=== PATIENT | male | born 1960 | race Caucasian/White ===

== ENCOUNTER 2021-02-23 09:42 | Emergency (ER) | payer MEDICAID, SELFPAY ==
--- NOTE | ~2021-02-23 | CT_ITS ---
EXAMINATION: CT ABDOMEN AND PELVIS WITHOUT CONTRAST CLINICAL INFORMATION: Right flank pain COMPARISON: 07/01/2016 TECHNIQUE: Multidetector volumetric imaging was performed from the superior aspect of the liver through the pubic symphysis. Sagittal and coronal reformatted images were obtained on the technologist's workstation. This CT examination was performed using dose optimization techniques as appropriate, variously including the following: *Automated exposure control *Adjustment of mA and/or kV according to patient size (this includes techniques or standardized protocols for targeted exams where dose is matched to indication/reason for exam; i.e. extremities or head) *Use of iterative reconstruction technique DLP: 674 mGy-cm FINDINGS: LUNG BASES: The visualized lung bases are unremarkable. LIVER, GALLBLADDER, AND BILIARY TREE: The liver is normal in size, shape, and attenuation. No focal hepatic lesion or biliary ductal dilatation is present. The gallbladder is unremarkable with no evidence of radiopaque gallstones, gallbladder wall thickening, or obvious pericholecystic inflammatory changes. PANCREAS: Unremarkable. SPLEEN: Unremarkable. ADRENAL GLANDS: Unremarkable. KIDNEYS AND URETERS: The kidneys are normal in size, shape, and attenuation. Mild right hydroureteronephrosis. There is a distal ureteral calculus measuring 0.3 cm. This is approximately 2 cm proximal to the ureterovesicular junction. There are multiple nonobstructing bilateral renal calculi. On the right there is a 0.2 cm lower pole calculus which is 14 cm from the posterior axillary line. On the left there are at least 3 calculi, with the largest at the lower pole measuring 0.4 cm, 11 cm from the posterior axillary line. BLADDER: Unremarkable. GASTROINTESTINAL TRACT: The stomach is unremarkable. Normal caliber small bowel. No obstruction. No colonic wall thickening or inflammatory change. Mild diverticulosis without diverticulitis. Normal appendix. No free air or free fluid. ABDOMINAL WALL: Possible prior ventral hernia repair. No abdominal wall hernia seen. LYMPH NODES: Normal. VASCULAR: Normal caliber aorta with mild atherosclerotic calcification. PELVIC VISCERA: The prostate and seminal vesicles are unremarkable. OSSEOUS STRUCTURES: No acute or suspicious osseous abnormality. Prominent endplate sclerosis at L5-S1. Bilateral L5 pars defects with grade 2 anterolisthesis of L5 on S1. CT/CT abdomen pelvis wo con IMPRESSION: Mild right hydroureteronephrosis with a 0.3 cm distal ureteral obstructing calculus. Multiple additional nonobstructing bilateral renal calculi.
[2021-02-23 09:55] VITALS: BP 132/96; PULSE 73; RESP 17; TEMP 36.9; O2SAT 99
[2021-02-23 09:59] VITALS: BP 176/86; PULSE 72; RESP 18; TEMP 36.8; O2SAT 99; BMI 31.7
--- NOTE | 2021-02-23 10:13 | ED.ABDPAIN ---
HPI - Abdominal Pain General Chief Complaint: Abdominal Pain Stated Complaint: rt side abd pain Time Seen by Provider: 02/23/21 10:00 Source: patient Mode of arrival: ambulatory Limitations: no limitations History of Present Illness MD elicited complaint: flank pain Pertinent past history: none Onset (ago): day(s) (yesterday but much worse the past 3 hours) Pain Consistency: colicky Location: R flank Severity: moderate Quality: stabbing Radiation: none Migration to: no migration Exacerbating factors: nothing Relieving factors: nothing Associated symptoms: denies other symptoms Related Data Previous Rx's Medication Instructions Recorded morphine 15 mg immediate release 15 mg PO Q6H PRN 3 Days #12 tab 02/23/21 tablet ondansetron 4 mg disintegrating 4 mg PO Q8H PRN #20 tab 02/23/21 tablet prednisone 20 mg tablet 40 mg PO DAILY 4 Days #8 tab 02/23/21 tamsulosin 0.4 mg capsule 0.4 mg PO DAILY 7 Days #7 cap 02/23/21 Allergies Allergy/AdvReac Type Severity Reaction Status Date / Time cyclobenzaprine Allergy Unknown SWELLING,WEIGHT Unverified 01/06/20 14:57 [CYCLOBENZAPRINE] GAIN, swelling meloxicam Allergy Unknown Verified 06/03/19 00:00 naproxen [NAPROXEN] Allergy Unknown PUFFY , Unverified 01/06/20 14:57 swelling zolpidem Allergy Unknown did not Verified 06/03/19 00:00 help with sleep Diclofenac Sodium Allergy Unknown Uncoded 06/03/19 00:00 Review of Systems Review of Systems Constitutional : No Weight loss, No Fever, No Chills ENT/Mouth : No sore throat, No Rhinorrhea Eyes: No Swelling, No Redness Cardiovascular : No Chest Pain, No SOB, NoEdema Respiratory : No Cough, No Sputum, No Wheezing Gastrointestinal : no Nausea, no Vomiting, no Diarrhea, positive abdominal Pain, No Hematochezia, No Melena Genitourinary : No Dysuria, No Urinary Frequency, No Hematuria, No Urgency Musculoskeletal : No joint pain, No Myalgias, No Joint Swelling Skin : No Skin Lesions, No rash Neuro : No Weakness, No Numbness, No Dizziness, No Headache Psych : No Anxiety/Panic, No Depression Heme/Lymph: No Bruising, No Lymphadenopathy Endocrine : No Polyuria, No Polydipsia All other systems reviewed and are negative. Physical Exam Vital Signs: Vital Signs: Last Vital Signs Temp 98.3 F 02/23/21 09:59 Pulse 72 02/23/21 09:59 Resp 18 02/23/21 09:59 BP 176/86 H 02/23/21 09:59 Pulse Ox 99 02/23/21 09:59 Body Mass Index 31.7 Appearance: Alert. Oriented X3. No acute distress. Eyes: Pupils equal, round and reactive to light. ENT: Pharynx normal. Neck: Normal inspection. Neck supple. CVS: Normal heart rate and rhythm. Pulses normal. Respiratory: No respiratory distress. Breath sounds normal. Abdomen: Soft and non-tender. Skin: Skin warm and dry. Normal skin color. Normal skin turgor. Extremities: No lower extremity edema. No calf ttp Neuro: Oriented X 3. No motor deficit. No sensory deficit. Course Course Course Narrative: no vomiting pain well controlled MDM - Abdominal Pain MDM Narrative Medical decision making narrative: 61 yo male with hx of COPD here with c/o R flank pain c/o some more yellow urine at this time will need labs, UA, IV morphine for pain, CT scan to evaluate for renal colic. Dispo per results and findings. Differential Diagnosis Differential diagnosis: Likely abdominal pain, calculus of kidney, diverticulitis and renal colic; Unlikely aortic dissection, acute appendicitis, endometriosis, mesenteric ischemia or small bowel obstruction Lab Data Result diagrams: 02/23/21 10:37 02/23/21 10:37 Labs: Lab Results 02/23/21 02/23/21 02/23/21 Range/Units 10:37 10:37 10:50 WBC 9.4 (4.8-10.8) X10*3/uL RBC 5.76 (4.60-5.80) X10*6/uL Hgb 16.8 (14.0-18.0) g/dl Hct 50.3 (42.0-52.0) % MCV 87.3 (80.0-98.0) fL MCH 29.2 (27.0-33.0) pg MCHC 33.4 (31.0-36.0) g/dl RDW 14.5 (11.0-16.0) % Plt Count 227 (160-400) X10*3/uL MPV 10.0 (9.4-12.4) fL Immature Gran % (Auto) 0.3 (0.0-0.4) % Neut % (Auto) 71.0 (45-73) % Lymph % (Auto) 19.5 L (20-40) % Sherman % (Auto) 6.8 (2-11) % Eos % (Auto) 1.4 (0-4) % Baso % (Auto) 1.0 (0-2) % Lymph # (Auto) 1.8 (1.2-4.9) X10*3/uL Sherman # (Auto) 0.6 (0.1-1.2) X10*3/uL Eos # (Auto) 0.1 (0.0-0.4) X10*3/uL Baso # (Auto) 0.1 (0.0-0.2) X10*3/uL Abs Immat Gran (auto) 0.03 (0.00-0.03) X10*3/uL Absolute Neuts (auto) 6.7 (2.0-8.3) x10*3/uL Absolute Nucleated RBC 0.000 (0.0-0.012) X10*3/uL Nucleated RBC % (auto) 0.0 (0.0-0.2) /100WBC Sodium 141 (135-145) mmol/L Potassium 4.4 (3.3-5.1) mmol/L Chloride 105 (96-108) mmol/L Carbon Dioxide 29 (22-29) mmol/L Anion Gap 11 L (12-20) BUN 23 H (9-16) mg/dL Creatinine 0.89 (0.5-1.4) mg/dL Estim Creat Clear Calc 102.9 Estimated GFR > 60 Random Glucose 114 (60-115) mg/dL Calcium 8.9 (8.4-10.2) mg/dL Magnesium 2.1 (1.6-2.6) mg/dL Total Bilirubin 0.6 (0.0-1.0) mg/dL Direct Bilirubin 0.2 (0.0-0.5) mg/dL AST 13 (5-37) U/L ALT 13 (0-40) U/L Alkaline Phosphatase 73 (39-117) U/L Total Protein 6.2 L (6.5-8.0) g/dL Albumin 4.2 (3.5-5.0) g/dL Lipase 25 (8-78) U/L Urine Color YELLOW Urine Appearance CLOUDY Urine pH 6.0 (5.0-8.0) Ur Specific [place] >= 1.030 H (1.005-1.025) Urine Protein 1+ H (NEG-TRACE) MG/DL Urine Glucose (UA) NEG (NEG) MG/DL Urine Ketones 5 (NEG) MG/DL Urine Blood 3+ H (NEG) Urine Nitrite NEG (NEG) Ur Leukocyte Esterase NEG (NEG) Urine RBC 76-150 H (0) /HPF Urine WBC 0-2 (0-4) /HPF Ur Squamous Epith Cells TRACE /LPF Urine Bacteria NONE /LPF Urine Mucus 1+ /LPF Discharge Plan Discharge Clinical Impression: Ureterolithiasis Patient Disposition: Home, Self-Care Instructions: Ureteral Stones (ED) Additional Instructions: return to ED for any worsening symptoms or concerns ?The kidneys are normal in size, shape, and attenuation. Mild right hydroureteronephrosis. There is a distal ureteral calculus measuring 0.3 cm. This is approximately 2 cm proximal to the ureterovesicular junction. There are multiple nonobstructing bilateral renal calculi. On the right there is a 0.2 cm lower pole calculus which is 14 cm from the posterior axillary line. On the left there are at least 3 calculi, with the largest at the lower pole measuring 0.4 cm, 11 cm from the posterior axillary line. Prescriptions: New prednisone 20 mg tablet 40 mg PO DAILY 4 Days Qty: 8 RF: 0 tamsulosin 0.4 mg capsule 0.4 mg PO DAILY 7 Days Qty: 7 RF: 0 morphine 15 mg tablet 15 mg PO Q6H PRN (Reason: pain) 3 Days Qty: 12 RF: 0 ondansetron 4 mg tablet,disintegrating 4 mg PO Q8H PRN (Reason: nausea and vomiting) Qty: 20 RF: 0 Referrals: Gian Denise MD [Physician] - 3 days (if not better on Friday) Stand Alone Forms: Work/School Release [facility] Past Medical History Attestation statement: The following information was validated with the patient. Medical History (Updated 02/23/21 @ 11:11 by Claire Abel DO) COPD (chronic obstructive pulmonary disease) Surgical History (Updated 02/23/21 @ 10:14 by Claire Abel DO) H/O hernia repair Social History Social History (Updated 02/23/21 @ 10:14 by Claire Abel DO) Alcohol intake: current Alcohol intake frequency: holidays/special occasions only Patient Tobacco Use Status: Current everyday Tobacco user Use of substances other than those prescribed or required for medical reasons: No Advance Directives: No
[2021-02-23 10:43] LABS: MANUAL DIFF FLAG NO
[2021-02-23 10:44] LABS: Basophils Absolute Auto 0.1 X10*3/uL (0.0-0.2); Eosinophils Absolute Auto 0.1 X10*3/uL (0.0-0.4); Eosinophils Percent Auto 1.4 % (0-4); Hematocrit 50.3 % (42.0-52.0); Hemoglobin 16.8 g/dl (14.0-18.0); Imm Gran Abs Auto 0.03 X10*3/uL (0.00-0.03); Imm Gran Pct Auto 0.3 % (0.0-0.4); Lymphocytes Absolute Auto 1.8 X10*3/uL (1.2-4.9); Lymphocytes Percent Auto 19.5 % (20-40); Mean Corpuscular HGB Conc 33.4 g/dl (31.0-36.0); Mean Corpuscular Hemoglobin 29.2 pg (27.0-33.0); Mean Corpuscular Volume 87.3 fL (80.0-98.0); Monocytes Absolute Auto 0.6 X10*3/uL (0.1-1.2); Monocytes Percent Auto 6.8 % (2-11); Neutrophils Absolute Auto 6.7 x10*3/uL (2.0-8.3); Platelet Count 227 X10*3/uL (160-400); Red Blood Count 5.76 X10*6/uL (4.60-5.80); Red Cell Distribution Width 14.5 % (11.0-16.0); White Blood Count 9.4 X10*3/uL (4.8-10.8)
[2021-02-23] MEDS: ondansetron HCL 4 MG/2 ML VIAL IVPUSH (10:45)
[2021-02-23] MEDS: Morphine Sulfate 4 MG/ML CARTRIDGE IVPUSH (10:45)
[2021-02-23] MEDS: 0.9 % Sodium Chloride 500 ML IV (10:46)
[2021-02-23 10:57] LABS: Appearance Urine CLOUDY; Color Urine YELLOW; Glucose Urine UA NEG (NEG); Leukocyte Esterase Urine NEG (NEG); Nitrite Urine NEG (NEG); Specific Gravity - Urine >= 1.030 (1.005-1.025); UACC Culture Trigger NO; Urine Blood 3+ (NEG); Urine Ketones 5 MG/DL (NEG); Urine Protein 1+ MG/DL (NEG-TRACE)
[2021-02-23 11:04] LABS: Mucus Urine 1+ /LPF; Squamous Epithelial Cell Urine TRACE /LPF; WBC Urine 0-2 /HPF (0-4)
[2021-02-23 11:06] LABS: Alanine Aminotransferase 13 U/L (0-40); Albumin Level 4.2 g/dL (3.5-5.0); Alkaline Phosphatase 73 U/L (39-117); Anion Gap 11 (12-20); Aspartate Amino Transferase 13 U/L (5-37); Bilirubin Direct 0.2 mg/dL (0.0-0.5); Bilirubin Total 0.6 mg/dL (0.0-1.0); Blood Urea Nitrogen 23 mg/dL (9-16); Calcium 8.9 mg/dL (8.4-10.2); Carbon Dioxide 29 mmol/L (22-29); Chloride 105 mmol/L (96-108); Creatinine Clr Calc Pharmacy 102.9; Estimated Glomerular Filt Rate > 60; Glucose Random 114 mg/dL (60-115); Lipase 25 U/L (8-78); Magnesium 2.1 mg/dL (1.6-2.6); Potassium 4.4 mmol/L (3.3-5.1); Sodium 141 mmol/L (135-145); Total Protein 6.2 g/dL (6.5-8.0)
[2021-02-23] MEDS: predniSONE 20 MG TABLET 60 MG PO (11:13)
[2021-02-23] MEDS: Tamsulosin HCL 0.4 MG CAPSULE PO (11:14)
[2021-02-23] MEDS: Morphine Sulfate Immed Release 15 MG TABLET PO (11:19)
== END 2021-02-23 11:53 | disposition home or self-care (01) ==
PROVIDERS: Emergency Provider Emergency Medicine; PCP Internal Medicine
DX: N13.2 Hydronephrosis with renal and ureteral calculous obstruction (principal)
CPT/HCPCS: 36415; 74176; 80048; 80076; 81001; 81003; 83690; 83735; 85025; 96361; 96374; 96375; 99284; J2270; J2405

== ENCOUNTER 2021-12-05 06:12 | Outpatient (REF) | payer MEDICAID, SELFPAY ==
[2021-12-05 06:23] LABS: MANUAL DIFF FLAG NO
[2021-12-05 07:16] LABS: Basophils Absolute Auto 0.1 X10*3/uL (0.0-0.2); Basophils Percent Auto 1.3 % (0-2); Eosinophils Absolute Auto 0.3 X10*3/uL (0.0-0.4); Eosinophils Percent Auto 3.4 % (0-4); Hematocrit 52.1 % (42.0-52.0); Hemoglobin 17.4 g/dl (14.0-18.0); Imm Gran Abs Auto 0.02 X10*3/uL (0.00-0.03); Imm Gran Pct Auto 0.2 % (0.0-0.4); Lymphocytes Absolute Auto 2.9 X10*3/uL (1.2-4.9); Mean Corpuscular HGB Conc 33.4 g/dl (31.0-36.0); Mean Corpuscular Hemoglobin 30.2 pg (27.0-33.0); Mean Corpuscular Volume 90.3 fL (80.0-98.0); Mean Platelet Volume 10.6 fL (9.4-12.4); Monocytes Absolute Auto 0.7 X10*3/uL (0.1-1.2); Monocytes Percent Auto 8.5 % (2-11); Neutrophils Absolute Auto 4.5 x10*3/uL (2.0-8.3); Neutrophils Percent Auto 52.6 % (45-73); Platelet Count 193 X10*3/uL (160-400); Red Blood Count 5.77 X10*6/uL (4.60-5.80); Red Cell Distribution Width 14.6 % (11.0-16.0); White Blood Count 8.5 X10*3/uL (4.8-10.8)
[2021-12-05 07:45] LABS: Alanine Aminotransferase 14 U/L (0-40); Albumin Level 3.9 g/dL (3.5-5.0); Alkaline Phosphatase 65 U/L (39-117); Anion Gap 13 (12-20); Aspartate Amino Transferase 12 U/L (5-37); Bilirubin Total 0.4 mg/dL (0.0-1.0); Blood Urea Nitrogen 27 mg/dL (9-16); Calcium 8.8 mg/dL (8.4-10.2); Carbon Dioxide 30 mmol/L (22-29); Chloride 104 mmol/L (96-108); Cholesterol 170 mg/dL; Estimated Glomerular Filt Rate > 60; Glucose Fasting 92 mg/dL (60-99); HDL Cholesterol 48 mg/dL; LDL Cholesterol Calculated 102 mg/dl; Potassium 4.2 mmol/L (3.3-5.1); Sodium 143 mmol/L (135-145); Total Protein 6.2 g/dL (6.5-8.0); Triglycerides 103 mg/dL
[2021-12-05 08:15] LABS: Prostate Specific Antigen 5.85 ng/mL (<0.05-4.0)
[2021-12-05 09:02] LABS: Appearance Urine Turbid; Color Urine Yellow; Glucose Urine UA Negative (Negative); Leukocyte Esterase Urine Negative (Negative); Nitrite Urine Negative (Negative); PH 5.5 (5.0-8.0); Specific Gravity - Urine 1.025 (1.005-1.025); Urine Blood Negative (Negative); Urine Ketones Negative (Negative); Urine Protein Negative (Neg-Trace)
== END 2021-12-05 06:13 | disposition home or self-care (01) ==
LOC: HO.LAB 06:12
PROVIDERS: PCP Internal Medicine; Visit Provider Internal Medicine
DX: Z00.00 Encounter for general adult medical examination without abnormal findings (principal)
CPT/HCPCS: 36415; 80053; 80061; 81003; 84153; 85025

== ENCOUNTER 2021-12-14 06:45 | Outpatient (REF) | payer MEDICAID, SELFPAY ==
[2021-12-17 08:28] LABS: Free Prostate Spec Ag 1.1 ng/mL; Percent Free Prostate Spec Ag 17 % (calc) (>25); Prostate Specific Ag Total 6.5 ng/mL (< OR = 4.0)
== END 2021-12-14 06:46 | disposition home or self-care (01) ==
LOC: HO.LAB 06:45
PROVIDERS: PCP Internal Medicine; Visit Provider Internal Medicine
DX: Z12.5 Encounter for screening for malignant neoplasm of prostate (principal); R97.20 Elevated prostate specific antigen [PSA]
CPT/HCPCS: 36415; 84154

== ENCOUNTER 2024-10-06 16:16 | Outpatient (AMB) | payer OTHER, SELFPAY ==
--- NOTE | 2024-10-06 16:19 | A.OFFPC_ITS ---
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 Accompanied by: Self / Same As Patient Allergies cyclobenzaprine (CYCLOBENZAPRINE) Allergy (Unknown, Unverified 10/06/24 16:20) SWELLING,WEIGHT GAIN, swelling meloxicam Allergy (Unknown, Verified 10/06/24 16:20) Unknown naproxen (NAPROXEN) Allergy (Unknown, Unverified 10/06/24 16:20) PUFFY , swelling zolpidem Allergy (Unknown, Verified 10/06/24 16:20) did not help with sleep Diclofenac Sodium Allergy (Mild, Uncoded 10/06/24 16:20) Unknown Medication List - Last Reconciled 10/06/24 by AUSTEN Greene lisinopril 10 mg PO DAILY HPI HPI Comments History of Present Illness Details 64-year-old male with history of COPD, B PH, hypertension, obesity who is a former cigarette smoker presents to the office today for management of chronic conditions and to establish care. He was last seen in the office with prior PCP about 3 years ago. Hypertension-reports he has been without lisinopril 5 mg daily for several months. Blood pressure in the office today initially 172/100, recheck 150/86. BPH/elevated PSA-last PSA in the office >5, has been following with [facility]. Has undergone biopsy x2 which were negative for malignancy. He denies any LUTS. He reports discontinuing Flomax and remains asymptomatic. Requires new referral COPD-not on any inhalers. Denies any shortness of breath, wheezing, cough Former cigarette smoker-reports smoking greater than 1 pack of cigarettes per day for about 25-30 years. He quit about 4 years ago. He is interested in lung cancer screening Concerns: None Health maintenance: Last screening colonoscopy 04/2019 with 5 year follow-up advised due to history of tubular adenoma Being followed by [facility] for prostate cancer screenings Due for lung cancer screening ROS: General: No fevers, malaise, unintentional weight loss HEENT: No blurred vision, diplopia. No sore throat, nasal congestion, rhinorrhea, sinus pain, ear pain Cardiovascular: No chest pain, palpitations, or leg edema Respiratory: No shortness of breath, wheezing, cough : No dysuria, hematuria, increased urinary frequency, decreased urinary output MSK: No myalgia, back pain Neuro: No headaches, weakness, paresthesias Skin: No rashes or lesions EXAM: Constitutional - Awake and Alert, No apparent distress Eyes - PERRL Cardiovascular - S1S2, RRR, No edema Respiratory - Normal lung expansion, Normal respiratory effort, No respiratory distress, CTA bilaterally Extremities - no calf tenderness bilaterally, no swelling Skin - Warm/Dry Neurological - Alert & oriented x3 Psychological - Appropriate affect PFSH Medical History (Updated 10/06/24 @ 17:01 by AUSTEN Greene) Hypertension Tubular adenoma Former smoker BPH w/o urinary obs/LUTS COPD (chronic obstructive pulmonary disease) Surgical History (Updated 10/06/24 @ 16:41 by AUSTEN Greene) Hx of prostate biopsy H/O hernia repair Social History (Updated 02/23/21 @ 10:14 by Sierra Abel DO) Alcohol intake: current Alcohol intake frequency: holidays/special occasions only Patient Tobacco Use Status: Current everyday Tobacco user Questionnaire PHQ-9 Over the last 2 weeks, how often have you been bothered by any of the following problems? 1. Little interest or pleasure in doing things: not at all 2. Feeling down, depressed, or hopeless: not at all 3. Trouble falling or staying asleep, or sleeping too much: not at all 4. Feeling tired or having little energy: not at all 5. Poor appetite or overeating: not at all 6. Feeling bad about yourself - or that you are a failure or have let yourself or your family down: not at all 7. Trouble concentrating on things, such as reading the newspaper or watching television: not at all 8. Moving or speaking so slowly that other people could have noticed. Or the opposite - being so fidgety or restless that you have been moving around a lot more than usual: not at all 9. Thoughts that you would be better off or of hurting yourself in some way: not at all Total score: 0 Source: Developed by Drs. Christian Santizo, Monica Ortiz, Renato Santos and colleagues, with an educational con from [employer]. Thrive Questionnaire Date Thrive assessed: 10/06/24 I am a: Patient What is your living situation today?: I have a steady place to live Within the past 12 months, did the food you bought not last and you didn't have the money to get more?: Never true Within the past 12 months, did you worry whether your food would run out before you got money to buy more?: Never true Do you have trouble paying for medicines?: No Do you have trouble getting transportation to medical appointments?: No Do you have trouble paying your heating and electricity bill?: No Do you have trouble taking care of your child, family member or friend?: No Do you have trouble with day-to-day activities such as bathing, preparing meals, shopping, managing finances, etc.?: No Are you currently unemployed and looking for a job?: No Are you interested in more education?: No Please select the resources that you would like help with: None THRIVE Score: 0 GABBIE-7 AMB Questionnaire GABBIE-7 Date GABBIE - 7 assessed: 10/06/24 Feeling nervous, anxious, or on edge: 0 = Not at all Not being able to stop or control worryin = Not at all Worrying too much about different things: 0 = Not at all Trouble relaxin = Not at all Being so restless that it is hard to sit still: 0 = Not at all Becoming easily annoyed or irritable: 0 = Not at all Feeling afraid as if something awful might happen: 0 = Not at all Total GABBIE-7 score (0-4 normal; 5-9 mild; 10-14 moderate; 15-21 severe): 0 Source: Developed by Drs. Christian Santizo, Monica Ortiz, Renato Santos and colleagues, with an educational con from [employer]. Physical exam (Primary Care) Vital Signs: Last Vital Signs Temp 98.3 F 10/06/24 16:27 Pulse 84 10/06/24 16:27 Resp 16 10/06/24 16:27 BP 172/100 H 10/06/24 16:27 Pulse Ox 94 10/06/24 16:27 Oxygen Delivery Method Room Air 10/06/24 16:27 BMI result Body Mass Index 31.5 Tobacco/Smoking Status: Tobacco use Status Patient Tobacco Use Status Current everyday Tobacco 10/06/24 16:22 PHQ-9: PHQ-9 Score PHQ-9: Total score 0 10/06/24 16:29 Thrive Assessment: Date of Thrive Assessment Date Thrive assessed 10/06/24 10/06/24 16:29 Coding Level of Care Code New Pt Level 4 (75118) Complex EM visit Add On G2211 Diagnoses COPD (chronic obstructive pulmonary disease) J44.9 BPH w/o urinary obs/LUTS N40.0 Former cigarette smoker Z87.891 Hypertension I10 Assessment & Plan Assessment & Plan (1) COPD (chronic obstructive pulmonary disease): Code(s): J44.9 - Chronic obstructive pulmonary disease, unspecified Category: Medical Plan: Stable. No recent exacerbation (2) BPH w/o urinary obs/LUTS: Code(s): N40.0 - Benign prostatic hyperplasia without lower urinary tract symptoms Category: Medical Plan: Stable. No LUTS. Continue following with [facility], referral placed. PSA to be managed by specialist (3) Former cigarette smoker: Code(s): Z87.891 - Personal history of nicotine dependence Category: Medical Plan: Commended on smoking cessation. Referred for lung cancer screenings. (4) Hypertension: Code(s): I10 - Essential (primary) hypertension Category: Medical Plan: Uncontrolled. Initiate lisinopril 10 mg daily. Low-sodium diet. Plan Follow-up in 2-3 weeks for blood pressure check. Lisinopril 10 mg daily initiated. Labs to be completed following visit. Referrals placed as indicated below Orders: Orders Hemoglobin A1c Today J44.9 - Chronic obstructive pulmonary disease, unspecified, N40.0 - Benign prostatic hyperplasia without lower urinary tract symptoms, Z87.891 - Personal history of nicotine dependence Lipid Panel Today J44.9 - Chronic obstructive pulmonary disease, unspecified, N40.0 - Benign prostatic hyperplasia without lower urinary tract symptoms, Z87.891 - Personal history of nicotine dependence Basic Metabolic Panel Today J44.9 - Chronic obstructive pulmonary disease, unspecified, N40.0 - Benign prostatic hyperplasia without lower urinary tract symptoms, Z87.891 - Personal history of nicotine dependence Complete Blood Count Auto Diff Today J44.9 - Chronic obstructive pulmonary dis ease, unspecified, N40.0 - Benign prostatic hyperplasia without lower urinary tract symptoms, Z87.891 - Personal history of nicotine dependence Liver Panel Today J44.9 - Chronic obstructive pulmonary disease, unspecified, N40.0 - Benign prostatic hyperplasia without lower urinary tract symptoms, Z87.891 - Personal history of nicotine dependence Referrals Lung Cancer Screening Referral Z87.891 - Personal history of nicotine dependence Gastroenterology Referral D36.9 - Benign neoplasm, unspecified site, Z12.11 - Encounter for screening for malignant neoplasm of colon Urology Referral N40.0 - Benign prostatic hyperplasia without lower urinary tract symptoms Medications: New lisinopril 10 mg PO DAILY 90 tabs 1RF Discontinued ondansetron Discontinued Reason: Patient no longer taking 4 mg PO Q8H PRN 20 tabs 0RF nausea and vomiting tamsulosin Discontinued Reason: Patient no longer taking 0.4 mg PO DAILY 7 days 7 caps 0RF morphine Discontinued Reason: Patient no longer taking 15 mg PO Q6H 3 days PRN 12 tabs 0RF pain prednisone Discontinued Reason: Patient no longer taking 40 mg (2 x 20 mg) PO DAILY 4 days 8 tabs 0RF
[2024-10-06 16:27] VITALS: BP 172/100; PULSE 84; RESP 16; TEMP 36.8; O2SAT 94; BMI 31.5
[2024-10-06 16:53] VITALS: BP 150/86
--- OUTSIDE RECORDS SUMMARY | 2024-10-06 18:07 | XMS_ITS | Patient Health Record ---
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 Name Role Phone Maulik Clayton MD Primary Care Provider Christian Del Rosario [phone] Allergies Allergen (clinical drug ingredient) Drug/Non Drug Allergy documented on EMR Reaction Allergy Type Onset Date Status omeprazole Omeprazole Unknown Drug Allergy Activ e Reason For Referral No Information Medications Medication SIG (Take, Route, Fr equency, Duration) Notes Start Date End Date Status Famotidine 20 MG 2 Orally Twice a day Active Immunizations Vaccine Route Administration Date Status Comme nts Influenza Unknown 02/23/2019 Refused Problems Problem Type SNOMED Code ICD Code Onset Dates Problem Status W/U Status Risk Notes Problem 179440817 Encounter for screening for malignant neoplasm of colon (Z12.11) Active confirmed Problem 756600275 Gastroesophageal reflux disease without esophagitis (K21.9) Active confirmed Problem 127584120 Hx of adenomatou s colonic polyps (Z86.010) Active confirmed Plan Of Treatment Future Test Test Name Order Date COLONOSCOPY 09/15/2013 COLONOSCOPY 02/23/2019 Insurance Providers Payer Name Payer Address Payer Phone Subscriber Number Group Number Insured Name Patient Relationship to Insured Coverage Start Date Coverage End Date [facility] [address] [address] [place], [place] [id number] CHANTELLE BLOOM Self - patient is the insured MEDICAID OF [facility] [address] [place] [address] [phone] [id number] CHANTELLE BLOOM Self - patient is the insured Medical (General) History Medical History History ICD Code Denies CO,DM,CVA,renal disease GERD--EGD in [address] Nuvia barajas-gastritis, biopsies negative for H. pylori, no esophagitis Screening Colonoscopy in 12/2013 with rem oval of a small tubular adenoma COPD Negative abdominal ultrasound and CAT sc an in 2017 Surgical History Surgery Date(Month/Year) Umbilical hernia repair with Dr. Neville z x 2
== END 2024-10-06 16:50 | disposition home or self-care (01) ==
LOC: HO.HMCHD 16:17
PROVIDERS: PCP Internal Medicine; Visit Provider Physician Assistant
DX: J44.9 Chronic obstructive pulmonary disease, unspecified (principal); N40.0 Benign prostatic hyperplasia without lower urinary tract symptoms; Z87.891 Personal history of nicotine dependence; I10 Essential (primary) hypertension

== ENCOUNTER → 2024-10-06 16:16 | Outpatient (BNVA) | payer OTHER, SELFPAY | PROVIDERS: PCP Internal Medicine; Visit Provider Physician Assistant ==

== ENCOUNTER 2024-10-26 06:19 | Outpatient (REF) | payer OTHER, SELFPAY ==
[2024-10-26 06:32] LABS: MANUAL DIFF FLAG NO
[2024-10-26 07:32] LABS: Hematocrit 48.9 % (42.0-52.0); Hemoglobin 16.3 g/dl (14.0-18.0); Hemoglobin A1C 146.4265 umol/L; Imm Gran Abs Auto 0.03 X10*3/uL (0.00-0.03); Imm Gran Pct Auto 0.4 % (0.0-0.4); Lymphocytes Absolute Auto 2.1 X10*3/uL (1.2-4.9); Mean Corpuscular HGB Conc 33.3 g/dl (31.0-36.0); Mean Corpuscular Hemoglobin 29.3 pg (27.0-33.0); Mean Corpuscular Volume 87.9 fL (80.0-98.0); NRBC Abs Auto 0.000 X10*3/uL (0.0-0.012); NRBC Pct Auto 0.0 /100WBC (0.0-0.2); Platelet Count 214 X10*3/uL (160-400); Red Blood Count 5.56 X10*6/uL (4.60-5.80); Total Hemoglobin (HGBA1C) 4212.5352 umol/L; White Blood Count 8.0 X10*3/uL (4.8-10.8)
[2024-10-26 07:54] LABS: Alanine Aminotransferase 16 U/L (0-40); Albumin Level 4.2 g/dL (3.5-5.0); Alkaline Phosphatase 57 U/L (39-117); Anion Gap 11 (12-20); Aspartate Amino Transferase 20 U/L (5-37); Blood Urea Nitrogen 24 mg/dL (9-16); Calcium 8.8 mg/dL (8.4-10.2); Carbon Dioxide 30 mmol/L (22-29); Chloride 104 mmol/L (96-108); Cholesterol 160 mg/dL (<200); Estimated Glomerular Filt Rate > 60; HDL Cholesterol 52 mg/dL (>40); Potassium 4.2 mmol/L (3.3-5.1); Sodium 141 mmol/L (135-145); Total Protein 6.3 g/dL (6.5-8.0); Triglycerides 99 mg/dL (<150)
== END 2024-10-26 06:20 | disposition home or self-care (01) ==
LOC: HO.LAB 06:19
PROVIDERS: PCP Physician Assistant; Visit Provider Physician Assistant
DX: N40.0 Benign prostatic hyperplasia without lower urinary tract symptoms (principal); J44.9 Chronic obstructive pulmonary disease, unspecified; Z87.891 Personal history of nicotine dependence
CPT/HCPCS: 36415; 80048; 80061; 80076; 83036; 85025